=== PATIENT | male | born 1995 | race Hispanic/Latino ===

== ENCOUNTER 2024-05-23 09:07 | Emergency (ER) | payer OTHER, SELFPAY ==
[2024-05-23 10:14] LABS: Specific Gravity 1.007 (1.005-1.030); Urine Bilirubin NEGATIVE (Negative); Urine Blood Negative (Negative); Urine Clarity Clear (Clear); Urine Color Colorless (Yellow); Urine Glucose NEGATIVE (Negative); Urine Ketones NEGATIVE (Negative); Urine Microscopic Reflex YN NO UMIC; Urine Nitrite NEGATIVE (Negative); Urine Protein NEGATIVE (Negative); Urine Urobilinogen Normal (Normal); Urine pH 6.5 (5.0-7.0)
--- NOTE | 2024-05-23 10:24 | RAD REPORT ---
EXAMINATION: CT LUMBAR SPINE WITHOUT CONTRAST CLINICAL INDICATION: Male, 29 years old. PAIN TECHNIQUE: Axial CT images were obtained through the lumbar spine in soft tissue and bone windows wit hout intravenous contrast. Coronal and Sagittal reformatted images were created from the data set. One or more of the following dose reduction techniques were used: Automated exposure control, adjustm ent of the mA and/ or kV according to patient size, and/or iterative reconstruction. Unless otherwise specified, incidental findings do not require dedicated imaging follow-up. COMPARISON: No prior exam. FINDINGS: For purposes of this dictation, it is assumed that there are 5 non rib-bearing lumbar type vertebrae, and the most caudal fully segmented lumbar vertebra is labeled L5. ALIGNMENT: The lumbar spine demonstrates normal alignment without scoliosis or spondylolisthesis. BONES: No significant soft tissue abnormalities. No aggressive osseous lesions. DISCS: Intervertebral disc space heights are maintained. LEVELS: Mild posterior disc bulging and small endplate osteophytes lower lumbar levels, most notable at L5-S1. SOFT TISSUE: No soft tissue abnormalities. IMPRESSION: No acute lumbar spine abnormalities. Mild lower lumbar spondylosis is noted. If further evaluation of disc disease is clinically indicate d, recommend nonemergent MRI follow-up.
[2024-05-23] MEDS ORDERED: IBUPROFEN 200 MG TAB PO ONE ×2 (11:12→11:16)
--- NOTE | 2024-05-23 11:14 | EDPHYS ---
Physician Documentation [facility] Name: Moiz Thornton Age: 29 yrs Sex: Male : 1995 Arrival Date: 05/23/2024 Time: 09:07 Bed 19 Private MD: CARLOS Physician Drew Lewis HPI: 05/23 11:09 This 29 yrs old Male presents to ER via Ambulatory with complaints of Low Back toni Pain. 11:09 The patient presents with pain that is chronic, with no known mechanism of injury. The toni symptoms are located in the low back, lumbar area. The pain does not radiate. The problem was sustained from unknown cause. Onset: The symptoms/episode began/occurred 4 week(s) ago. Modifying factors: The patient symptoms are alleviated by remaining still, rest, the patient symptoms are aggravated by lifting, movement, standing. Associated signs and symptoms: The patient has no apparent associated signs or symptoms. Severity of symptoms: At their worst the symptoms were mild, moderate, in the emergency department the symptoms are unchanged. The patient has experienced similar episodes in the past, multiple times. Historical: - Allergies: 09:50 No Known Allergies; ss - Home Meds: 09:50 None [Active]; ss - PMHx: 09:50 None; ss - PSHx: 09:50 None; ss - Immunization history:: Client reports having NOT received the Covid vaccine. - Infectious Disease History:: Denies. - Social history:: Smoking status: Patient denies any tobacco usage or history of. - Family history:: not pertinent. ROS: 11:09 Constitutional: Negative for fever, chills, and weight loss, Eyes: Negative for injury, toni pain, redness, and discharge, ENT: Negative for injury, pain, and discharge, Neck: Negative for injury, pain, and swelling, Cardiovascular: Negative for chest pain, palpitations, and edema, Respiratory: Negative for shortness of breath, cough, wheezing, and pleuritic chest pain, Abdomen/GI: Negative for abdominal pain, nausea, vomiting, diarrhea, and constipation, : Negative for injury, bleeding, discharge, and swelling, MS/Extremity: Negative for injury and deformity, Skin: Negative for injury, rash, and discoloration, Neuro: Negative for headache, weakness, numbness, tingling, and seizure, Psych: Negative for depression, anxiety, suicide ideation, homicidal ideation, and hallucinations, Allergy/Immunology: Negative for hives, rash, and allergies, Endocrine: Negative for neck swelling, polydipsia, polyuria, polyphagia, and marked weight changes, Hematologic/Lymphatic: Negative for swollen nodes, abnormal bleeding, and unusual bruising, 11:09 Back: Positive for pain at rest, pain with movement, Exam: 11:09 Constitutional: This is a well developed, well nourished patient who is awake, alert, toni and in no acute distress. Head/Face: Normocephalic, atraumatic. Eyes: Pupils equal round and reactive to light, extra-ocular motions intact. Lids and lashes normal. Conjunctiva and sclera are non-icteric and not injected. Cornea within normal limits. Periorbital areas with no swelling, redness, or edema. ENT: Nares patent. No nasal discharge, no septal abnormalities noted. Tympanic membranes are normal and external auditory canals are clear. Oropharynx with no redness, swelling, or masses, exudates, or evidence of obstruction, uvula midline. Mucous membranes moist. Neck: Trachea midline, no thyromegaly or masses palpated, and no cervical lymphadenopathy. Supple, full range of motion without nuchal rigidity, or vertebral point tenderness. No Meningismus. Chest/axilla: Normal chest wall appearance and motion. Nontender with no deformity. No lesions are appreciated. Cardiovascular: Regular rate and rhythm with a normal S1 and S2. No gallops, murmurs, or rubs. Normal PMI, no JVD. No pulse deficits. Respiratory: Lungs have equal breath sounds bilaterally, clear to auscultation and percussion. No rales, rhonchi or wheezes noted. No increased work of breathing, no retractions or nasal flaring. Abdomen/GI: Soft, non-tender, with normal bowel sounds. No distension or tympany. No guarding or rebound. No evidence of tenderness throughout. Male : Normal genitalia with no discharge or lesions. Skin: Warm, dry with normal turgor. Normal color with no rashes, no lesions, and no evidence of cellulitis. MS/ Extremity: Pulses equal, no cyanosis. Neurovascular intact. Full, normal range of motion. Neuro: Awake and alert, GCS 15, oriented to person, place, time, and situation. Cranial nerves II-XII grossly intact. Motor strength 5/5 in all extremities. Sensory grossly intact. Cerebellar exam normal. Normal gait. Psych: Awake, alert, with orientation to person, place and time. Behavior, mood, and affect are within normal limits. 11:09 Back: pain, that is moderate, ROM is painful, normal spinal alignment noted, CVA tenderness, is absent, muscle spasm, is appreciated in the left low back, left mid back, right mid back and right low back, Vital Signs: 09:49 BP 148 / 85; Pulse 69; Resp 16; Temp 98(TE); Pulse Ox 99% on R/A; Weight 79.38 kg; ss Height 5 ft. 11 in. ; Pain 8/10; 09:49 Body Mass Index 24.41 (79.38 kg, 180.34 cm) 09:49 Pain Scale: Adult ss [place] Coma Score: 11:09 Eye Response: spontaneous(4). Motor Response: obeys commands(6). Verbal Response: toni oriented(5). Total: 15. MDM: 09:22 Medical Screening Exam initiated toni 11:12 Differential diagnosis: arthritis, strain, sciatica, contusion, Herniated disc UTI. toni Data reviewed: vital signs, nurses notes, lab test result(s), radiologic studies, CT scan. Consideration of Admission/Observation Escalation of care including admission/observation considered. I considered the following discharge prescriptions or medication management in the emergency department Medications were administered in the Emergency Department. See MAR. Independent interpretation of the following test(s) in the Emergency Department CT Scan: My interpretation is CT LUMBAR. 05/23 09:22 Order name: Urinalysis w/ reflexes; Complete Time: 10:51 toni 05/23 09: Order name: CT Lumbar Spine Wo Con; Complete Time: 10:51 toni Administered Medications: 11:20 Drug: Ibuprofen PO 600 mg PO once Route: PO; kc6 Disposition Summary: 05/23/24 11:13 Discharge Ordered Notes: Location: Home toni Problem: new toni Symptoms: have improved toni Condition: Stable toni Diagnosis - Low back pain toni - Strain of muscle, fascia and tendon of abdomen, lower back and pelvis toni Followup: toni - With: Private Physician - When: 2 - 3 days - Reason: Recheck today's complaints, Continuance of care, Re-evaluation by your physician Followup: toni - With: Abdifatah Glasgow MD - When: 2 - 3 days - Reason: Recheck today's complaints, Re-evaluation by your physician Discharge Instructions: - Discharge Summary Sheet toni - Acute Back Pain, Adult toni - Musculoskeletal Pain toni - Chronic Back Pain, [id number]-Giq[facility] - Back Exercises [facility] Forms: - Medication Reconciliation Form toni - Antibiotic Education toni - Prescription Opioid Use toni - Patient Portal Instructions [facility] - Leadership Thank You Letter [facility] Prescriptions: - Diclofenac Sodium 75 mg Oral tablet, delayed release (enteric coated) - take 1 tablet ORAL route 2 times per day; 20 tablet; Refills: 0, Product [facility] Selection Permitted - Medrol (Tee) 4 mg Oral Tablets, Dose Pack - take 1 tablet ORAL route as directed - follow package instructions; 1 packet; [facility] Refills: 0, Product Selection Permitted - methocarbamol 750 mg Oral tablet - take 1 tablet ORAL route every 4 hours; 30 tablet; Refills: 0, Product [facility] Selection Permitted Signatures: Dispatcher [employer] Drew Bustamante MD MD cha Blanchard, Shelby, HUMBERTO RN ss Sara Hernandez RN RN kc6 Corrections: (The following items were deleted from the chart) 09:23 09:23 Spine Lumbar Wo Con+CT.RAD.BRZ ordered. ED EDMS
--- NOTE | 2024-05-23 11:14 | ER ---
Nurse's Notes [facility] Name: Moiz Thornton Age: 29 yrs Sex: Male : 1995 Arrival Date: 05/23/2024 Time: 09:07 Bed 19 Private MD: Diagnosis: Low back pain;Strain of muscle, fascia and tendon of abdomen, lower back and pelvis Presentation: 05/23 09:49 Chief complaint: Patient states: low back pain near tailbone that has been ongoing for ss years, but has gotten worse. Coronavirus screen: Client denies travel out of the [place] in the last 14 days. Ebola Screen: Patient denies exposure to infectious person. Patient denies travel to an Ebola-affected area in the 21 days before illness onset. Initial Sepsis Screen: Does the patient meet any 2 criteria? No. Patient's initial sepsis screen is negative. Does the patient have a suspected source of infection? No. Patient's initial sepsis screen is negative. Risk Assessment: Do you want to hurt yourself or someone else? Patient reports no desire to harm self or others. Onset of symptoms is unknown. 09:49 Method Of Arrival: Ambulatory ss 09:49 Acuity: ZHEN 4 ss Historical: - Allergies: 09:50 No Known Allergies; ss - Home Meds: 09:50 None [Active]; ss - PMHx: 09:50 None; ss - PSHx: 09:50 None; ss - Immunization history:: Client reports having NOT received the Covid vaccine. - Infectious Disease History:: Denies. - Social history:: Smoking status: Patient denies any tobacco usage or history of. - Family history:: not pertinent. Screenin:17 [facility] ED Fall Risk Assessment (Adult) History of falling in the last 3 months, kc6 including since admission No falls in past 3 months (0 pts) Confusion or Disorientation No (0 pts) Intoxicated or Sedated No (0 pts) Impaired Gait No (0 pts) Mobility Assist Device Used No (0 pt) Altered Elimination No (0 pt) Score/Fall Risk Level 0 - 2 = Low Risk Oriented to surroundings. Abuse screen: Denies threats or abuse. Denies injuries from another. Nutritional screening: No deficits noted. Tuberculosis screening: No symptoms or risk factors identified. Assessment: 09:30 Reassessment: Called to triage. No answer. Registration staff reports that patient is ss in imaging at this time. 09:40 Reassessment: Pt is still in imaging at this time. ss 10:16 General: Appears in no apparent distress. comfortable, well groomed, well developed, kc6 Behavior is calm, cooperative, appropriate for age. Pain: Complains of pain in coccyx. Neuro: Level of Consciousness is awake, alert, obeys commands, Oriented to person, place, time, situation, Appropriate for age. Cardiovascular: Capillary refill < 3 seconds. Respiratory: Airway is patent Trachea midline Respiratory effort is even, unlabored, Respiratory pattern is regular, symmetrical. GI: No signs and/or symptoms were reported involving the gastrointestinal system. : No signs and/or symptoms were reported regarding the genitourinary system. Urine is clear. EENT: No signs and/or symptoms were reported regarding the EENT system. Derm: No signs and/or symptoms reported regarding the dermatologic system. Skin is intact, is healthy with good turgor, Skin is pink, warm \T\ dry. Musculoskeletal: No signs and/or symptoms reported regarding the musculoskeletal system. Circulation, motion, and sensation intact. Capillary refill < 3 seconds, Range of motion: intact in all extremities. Vital Signs: 09:49 BP 148 / 85; Pulse 69; Resp 16; Temp 98(TE); Pulse Ox 99% on R/A; Weight 79.38 kg; ss Height 5 ft. 11 in. ; Pain 8/10; 09:49 Body Mass Index 24.41 (79.38 kg, 180.34 cm) ss 09:49 Pain Scale: Adult ss [place] Coma Score: 11:09 Eye Response: spontaneous(4). Motor Response: obeys commands(6). Verbal Response: toni oriented(5). Total: 15. ED Course: 09:12 Patient arrived in ED. sj2 09:22 Drew Lewis MD is Attending Physician. toni 09:46 CT Lumbar Spine Wo Con In Process Unspecified. EDMS 09:50 Triage completed. ss 09:50 Arm band placed on right wrist. ss 09:57 Sara Hernandez, HUMBERTO is Primary Nurse. kc6 10:09 Urinalysis w/ reflexes Sent. ss 10:17 Patient has correct armband on for positive identification. Bed in low position. Call kc6 light in reach. Side rails up X 1. Pulse ox on. NIBP on. Door closed. Noise minimized. Lights dimmed. Pillow given. 10:17 Patient maintains SpO2 saturation greater than 95% on room air. kc6 11:12 Abdifatah Glasgow MD is Referral Physician. [facility] 11:22 No provider procedures requiring assistance completed. Patient did not have IV access kc6 during this emergency room visit. Administered Medications: 11:20 Drug: Ibuprofen PO 600 mg PO once Route: PO; kc6 Medication: 11: VIS not applicable for this client. kc6 Outcome: 11:13 Discharge ordered by . [facility] 11:22 Discharged to home ambulatory, kc6 11:22 Condition: good 11:22 Discharge instructions given to patient, Instructed on discharge instructions, follow up and referral plans. medication usage, Demonstrated understanding of instructions, follow-up care, medications, Prescriptions given X 3, 11:22 Patient left the ED. kc6 Signatures: Dispatcher [employer] EDMS Drew Lewis MD MD cha Blanchard, Shelby, RN RN Sara Montez RN RN kc Korey Hamilton 2
[2024-05-23 16:20] VITALS: BP 148/85; TEMP 98; O2SAT 99
== END 2024-05-23 11:22 | disposition home or self-care (01) ==
LOC: ER 09:07
DX: S39.012A Strain of muscle, fascia and tendon of lower back, initial encounter (principal); S39.011A Strain of muscle, fascia and tendon of abdomen, initial encounter; S39.013A Strain of muscle, fascia and tendon of pelvis, initial encounter
CPT/HCPCS: 72131; 81003; 99284